=== PATIENT | male | born 1960 | race Caucasian/White ===

== ENCOUNTER 2021-09-24 20:28 | Emergency (ER) | payer OTHER ==
[~2021-09-24 20:28] MED LIST: ACCUPRIL 5MG TAB5 MG PO; AZITHROMYCIN250 MG PO; CEFDINIR300 MG PO; CLEOCIN300 MG PO; DUONEB 2.5-0.5M1 AMP INH; LIPITOR40 MG PO; MAG-OXIDE 400M400 MG PO; MAGNESIUM OXID400 MG PO; METOPROLOL SUCC25 MG PO; NEBULIZER UNIT NEB; POTASSIUM CHLO20 ME2 PO; PROTONIX 40MG T40 MG PO; VENTOLIN HFA IN18 GM INH
[2021-09-24 21:58] LABS: BASOPHIL 0.1 % (0-2); EOSINOPHIL 0.2 % (0-5); HCT 30.2 % (42.0-52.0); MCH 28.8 pg (25.0-31.0); MCHC 33.1 g/dL (32.0-36.0); MONOCYTE 5.5 % (0-12); MPV 10.3 fL (6.0-9.5); NRBC 0; PLT 267 K/uL (150-400); RBC 3.47 M/uL (4.70-6.00); RDW 14.6 % (11.5-14.0); WBC 20.1 K/uL (4.0-10.5)
[2021-09-24 22:00] LABS: NEUTROPHIL 91.6 % (41-80)
[2021-09-24 22:18] LABS: ALBUMIN 2.1 g/dL (3.4-5.0); BILIRUBIN - TOTAL 0.2 mg/dL (0.2-1.0); BUN/CREAT RATIO (CALC) 18.1 RATIO; CREATININE 1.05 mg/dL (0.67-1.17); POTASSIUM 4.4 mmol/L (3.5-5.1); TOTAL PROTEIN 7.1 g/dL (6.4-8.2)
[2021-09-24 22:35] LABS: BILIRUBIN NEGATIVE (NEGATIVE); BLOOD 1+ Ery/uL (NEGATIVE); CLARITY CLEAR (CLEAR); COLOR YELLOW (YELLOW); GLUCOSE (U) 3+ mg/dL (NORMAL); LEUKOCYTES NEGATIVE Leu/uL (NEGATIVE); NITRITE NEGATIVE (NEGATIVE); PROTEIN 1+ mg/dL (NEGATIVE); SPECIFIC GRAVITY 1.015 (1.001-1.030); UROBILINOGEN 0.2 mg/dL (0.2-1.0); pH 6.5 (5.0-9.0)
[2021-09-24 22:41] LABS: BACTERIA TRACE; URINARY RBC RARE; URINARY WBC RARE
[2021-09-24 23:36] LABS: LACTIC ACID 1.6 mmol/L (0.4-1.9)
[2021-09-24 23:51] LABS: BUN/CREAT RATIO (CALC) 15.9 RATIO; CREATININE 1.07 mg/dL (0.67-1.17); POTASSIUM 4.7 mmol/L (3.5-5.1)
[2021-09-25 00:17] LABS: CORONAVIRUS 2019 SARS-COV-2 NEGATIVE (NEGATIVE); INFLUENZA A NAA NEGATIVE (NEGATIVE)
[2021-09-25] MEDS ORDERED: LEVAQUIN750 MG PO ×2 (00:51→01:05)
== END 2021-09-25 01:58 | disposition home or self-care (01) ==
LOC: FER 20:28
PROVIDERS: Emergency Medicine Emergency Medical Services; Physician Assistant Medical
DX: E11.65 Type 2 diabetes mellitus with hyperglycemia (principal); J18.9 Pneumonia, unspecified organism; E87.1 Hypo-osmolality and hyponatremia; I10 Essential (primary) hypertension; K21.9 Gastro-esophageal reflux disease without esophagitis; C34.90 Malignant neoplasm of unspecified part of unspecified bronchus or lung; E03.9 Hypothyroidism, unspecified; Z20.822 Contact with and (suspected) exposure to COVID-19; Z51.5 Encounter for palliative care; Z87.891 Personal history of nicotine dependence; Z79.4 Long term (current) use of insulin; Z79.84 Long term (current) use of oral hypoglycemic drugs; Z79.890 Hormone replacement therapy; Z79.899 Other long term (current) drug therapy; Z99.81 Dependence on supplemental oxygen
CPT/HCPCS: 36415; 71045; 80048; 80053; 81001; 83605; 84145; 85025; 87040; J0692; J7030; U0002

== ENCOUNTER 2021-10-10 13:50 | Inpatient (IN) | payer OTHER ==
[~2021-10-10] VITALS: Ht 172.7 cm; Wt 82.3 kg
[~2021-10-10 13:50] MED LIST changes: +LEVAQUIN750 MG PO
[2021-10-10 14:28] LABS: BASOPHIL 0.2 % (0-2); EOSINOPHIL 0.2 % (0-5); HCT 27.7 % (42.0-52.0); HGB 8.8 g/dl (13.2-18.0); LYMPHOCYTE 1.8 % (15-48); MCH 27.9 pg (25.0-31.0); MCHC 31.8 g/dL (32.0-36.0); MCV 87.9 fL (78.0-100.0); MONOCYTE 5.9 % (0-12); MPV 9.7 fL (6.0-9.5); PLT 302 K/uL (150-400); RBC 3.15 M/uL (4.70-6.00); RDW 14.7 % (11.5-14.0); WBC 18.7 K/uL (4.0-10.5)
[2021-10-10 14:53] LABS: INR 1.52 (0.9-1.2); PROTHROMBIN TIME 17.6 SECONDS (11.8-13.4); PTT 44.7 SECONDS (24.4-34.7)
[2021-10-10 14:54] LABS: D-DIMER 3.31 ug/mLFEU (0.00-0.41)
[2021-10-10 14:55] LABS: ALBUMIN 1.7 g/dL (3.4-5.0); BILIRUBIN - TOTAL 0.3 mg/dL (0.2-1.0); BUN/CREAT RATIO (CALC) 12.7 RATIO; CREATININE 1.18 mg/dL (0.67-1.17); GLOBULIN (CALCULATION) 5.5 g/dL; MAGNESIUM 1.2 mg/dL (1.8-2.4); POTASSIUM 4.6 mmol/L (3.5-5.1); TOTAL PROTEIN 7.2 g/dL (6.4-8.2)
[2021-10-10 15:01] LABS: LACTIC ACID 2.3 mmol/L (0.4-1.9)
[2021-10-10 15:32] LABS: BAND 2 % (0-10); LYMPHOCYTE(M) 3 % (15-48); MONOCYTE(M) 7 % (0-12); NEUTROPHILS(M) 88 % (41-80); TOTAL CELL COUNT 100
[2021-10-10 15:33] LABS: NRBC 0
[2021-10-10 15:34] LABS: PLATELET ESTIMATE NORMAL; PLATELET MORPHOLOGY NORMAL
[2021-10-10 15:45] LABS: CORONAVIRUS 2019 SARS-COV-2 NEGATIVE (NEGATIVE); INFLUENZA A NAA NEGATIVE (NEGATIVE)
[2021-10-10 16:47] LABS: BILIRUBIN NEGATIVE (NEGATIVE); BLOOD NEGATIVE Ery/uL (NEGATIVE); CLARITY CLEAR (CLEAR); COLOR YELLOW (YELLOW); GLUCOSE (U) 2+ mg/dL (NORMAL); LEUKOCYTES NEGATIVE Leu/uL (NEGATIVE); NITRITE NEGATIVE (NEGATIVE); PROTEIN TRACE (LOW) mg/dL (NEGATIVE); SPECIFIC GRAVITY 1.015 (1.001-1.030); UROBILINOGEN 0.2 mg/dL (0.2-1.0); pH 7.5 (5.0-9.0)
[2021-10-10 16:52] LABS: URINARY RBC RARE; URINARY WBC RARE
[2021-10-10] MEDS ORDERED: METFORMIN HCL500 MG PO (21:44)
[2021-10-10] MEDS ORDERED: ELIQUIS5 MG PO (21:44)
[2021-10-10] MEDS ORDERED: MAG-OXIDE 400M400 MG PO ×2 (21:45→21:46)
[2021-10-10] MEDS ORDERED: PREDNISONE 10MG10 MG PO (21:45)
[2021-10-10] MEDS ORDERED: LEVAQUIN500 MG PO (21:45)
[2021-10-10] MEDS ORDERED: PROTONIX40 MG PO (21:46)
[2021-10-10] MEDS ORDERED: LEXAPRO 10MG TA10 MG PO (21:47)
[2021-10-10] MEDS ORDERED: LIPITOR40 MG PO (21:47)
[2021-10-10] MEDS ORDERED: PERCOCET 7.5/321 TAB PO (21:48)
[2021-10-10] MEDS ORDERED: EUTHYROX25 MCG PO (21:48)
[2021-10-10] MEDS ORDERED: TOPROL XL 25MG25 MG PO (21:48)
[2021-10-10] MEDS ORDERED: TOUJEO MAX300 UNIT/1 SC (21:51)
[2021-10-10] MEDS ORDERED: HUMALOG100 UNIT/3 SC (21:54)
[2021-10-11 05:55] LABS: BASOPHIL 0.2 % (0-2); EOSINOPHIL 0.6 % (0-5); HCT 25.1 % (42.0-52.0); LYMPHOCYTE 2.5 % (15-48); MCHC 31.9 g/dL (32.0-36.0); MCV 87.8 fL (78.0-100.0); MONOCYTE 7.3 % (0-12); MPV 9.8 fL (6.0-9.5); NEUTROPHIL 88.2 % (41-80); NRBC 0; PLT 277 K/uL (150-400); RBC 2.86 M/uL (4.70-6.00); RDW 14.7 % (11.5-14.0); WBC 16.6 K/uL (4.0-10.5)
[2021-10-11 06:45] LABS: CREATININE 1.09 mg/dL (0.67-1.17); POTASSIUM 4.3 mmol/L (3.5-5.1)
[2021-10-11 06:48] LABS: IRON % SATURATION 21.2 %SAT (20-50)
[2021-10-11 07:27] LABS: ALBUMIN 1.4 g/dL (3.4-5.0); BILIRUBIN - DIRECT 0.1 mg/dL (0.00-0.20); BILIRUBIN - TOTAL 0.3 mg/dL (0.2-1.0); BUN/CREAT RATIO (CALC) 11.9 RATIO; GLOBULIN (CALCULATION) 4.8 g/dL; TOTAL PROTEIN 6.2 g/dL (6.4-8.2)
[2021-10-12 06:58] LABS: ALBUMIN 1.4 g/dL (3.4-5.0); BILIRUBIN - TOTAL 0.6 mg/dL (0.2-1.0); BUN/CREAT RATIO (CALC) 10.4 RATIO; CREATININE 1.06 mg/dL (0.67-1.17); GLOBULIN (CALCULATION) 4.8 g/dL; POTASSIUM 4.1 mmol/L (3.5-5.1); TOTAL PROTEIN 6.2 g/dL (6.4-8.2)
[2021-10-13 06:25] LABS: BASOPHIL 0.3 % (0-2); EOSINOPHIL 0.7 % (0-5); HCT 25.6 % (42.0-52.0); HGB 8.2 g/dl (13.2-18.0); LYMPHOCYTE 3.1 % (15-48); MCH 28.3 pg (25.0-31.0); MCV 88.3 fL (78.0-100.0); MONOCYTE 7.9 % (0-12); NEUTROPHIL 86.9 % (41-80); NRBC 0; PLT 294 K/uL (150-400); RDW 14.7 % (11.5-14.0); WBC 19.4 K/uL (4.0-10.5)
[2021-10-13 06:30] LABS: BUN/CREAT RATIO (CALC) 11.9 RATIO; CREATININE 1.01 mg/dL (0.67-1.17)
--- NOTE | 2021-10-13 14:27 | NUR ---
10/13 Mr. Sanderson has a dx of lung cancer and he will no longer receive treatment. He does not wish to have Hospice services. - Mirella, patient's daughter, is supportive and assist as needed. - Mr. Sanderson has a rollator, rw, 3in1, wc, s. Chair and 02 at 4L. He only uses the 02. The concentrator currently goes up to 5 L. The family requested a concentrator with greater capacity. [employer] reports to be unable to supply a concentrator that goes up to 10L until the requirements increase. Patient was informed to get an order from Dr. Mcduffie when appropriate. - Mr. aSnderson chose [facility] . A referral was made via [facility]. Please notify [facility] at [phone] if patient is discharged over the weekend.
[2021-10-14 05:58] LABS: ALBUMIN 1.3 g/dL (3.4-5.0); BILIRUBIN - TOTAL 0.4 mg/dL (0.2-1.0); BUN/CREAT RATIO (CALC) 13.5 RATIO; CREATININE 1.04 mg/dL (0.67-1.17); GLOBULIN (CALCULATION) 4.7 g/dL; POTASSIUM 4.1 mmol/L (3.5-5.1)
[2021-10-14] MEDS ORDERED: FOLIC ACID1 MG PO (08:34)
[2021-10-14] MEDS ORDERED: AMIODARONE HCL200 MG PO (09:53)
== END 2021-10-14 10:31 | disposition home or self-care (01) | DRG 871 ==
LOC: FER 13:50 → FTCU 17:26
PROVIDERS: Emergency Medicine; ADMIT Family Medicine
DX: A41.9 Sepsis, unspecified organism (principal); J18.9 Pneumonia, unspecified organism; E87.1 Hypo-osmolality and hyponatremia; C34.91 Malignant neoplasm of unspecified part of right bronchus or lung; C34.92 Malignant neoplasm of unspecified part of left bronchus or lung; I31.3 Pericardial effusion (noninflammatory); R65.20 Severe sepsis without septic shock; Z20.822 Contact with and (suspected) exposure to COVID-19; I48.0 Paroxysmal atrial fibrillation; J43.9 Emphysema, unspecified; E83.42 Hypomagnesemia; D63.0 Anemia in neoplastic disease; I27.20 Pulmonary hypertension, unspecified; E78.5 Hyperlipidemia, unspecified; M79.89 Other specified soft tissue disorders; I10 Essential (primary) hypertension; E11.65 Type 2 diabetes mellitus with hyperglycemia; R74.8 Abnormal levels of other serum enzymes; L98.9 Disorder of the skin and subcutaneous tissue, unspecified; K59.03 Drug induced constipation; Z99.81 Dependence on supplemental oxygen; Z79.01 Long term (current) use of anticoagulants; Z79.52 Long term (current) use of systemic steroids; Z79.4 Long term (current) use of insulin; Z79.899 Other long term (current) drug therapy
CPT/HCPCS: 36415; 71045; 80048; 80053; 80076; 80202; 81001; 82607; 82962; 83540; 83550; 83605; 83735; 83880; 84145; 84443; 84484; 85025; 85379; 85610; 85730; 87040; 87088; 93005; J0282; J0692; J1815; J2405; J3370; J3475; J7050; J7060; U0002

== ENCOUNTER 2021-11-10 17:36 | Emergency (ER) | payer OTHER ==
[~2021-11-10 17:36] MED LIST changes: +AMIODARONE HCL200 MG PO; +ELIQUIS5 MG PO; +EUTHYROX25 MCG PO; +FOLIC ACID1 MG PO; +HUMALOG100 UNIT/3 SC; +LEVAQUIN500 MG PO; +LEXAPRO 10MG TA10 MG PO; +METFORMIN HCL500 MG PO; +PERCOCET 7.5/321 TAB PO; +PREDNISONE 10MG10 MG PO; +PROTONIX40 MG PO; +TOPROL XL 25MG25 MG PO; +TOUJEO MAX300 UNIT/1 SC
[2021-11-10 18:13] LABS: BASOPHIL 0.1 % (0-2); EOSINOPHIL 0.2 % (0-5); LYMPHOCYTE 1.7 % (15-48); MCH 27.4 pg (25.0-31.0); MCV 85.6 fL (78.0-100.0); MONOCYTE 4.6 % (0-12); MPV 9.2 fL (6.0-9.5); NRBC 0; PLT 433 K/uL (150-400); RBC 2.92 M/uL (4.70-6.00); RDW 15.5 % (11.5-14.0); WBC 29.3 K/uL (4.0-10.5)
[2021-11-10 18:17] LABS: NEUTROPHIL 92.7 % (41-80)
[2021-11-10 18:25] LABS: PTT 34.3 SECONDS (24.4-34.7)
[2021-11-10 18:34] LABS: LACTIC ACID 0.6 mmol/L (0.4-1.9)
[2021-11-10 18:36] LABS: ALBUMIN 1.9 g/dL (3.4-5.0); BILIRUBIN - TOTAL 0.4 mg/dL (0.2-1.0); BUN/CREAT RATIO (CALC) 22.7 RATIO; CREATININE 0.97 mg/dL (0.67-1.17); GLOBULIN (CALCULATION) 5.5 g/dL; TOTAL PROTEIN 7.4 g/dL (6.4-8.2)
[2021-11-10 18:43] LABS: INR 1.1 (0.9-1.2); PROTHROMBIN TIME 13.6 SECONDS (11.8-13.4)
[2021-11-10] MEDS ORDERED: ONDANSETRON ODT4 MG PO (20:59)
[2021-11-10] MEDS ORDERED: PHENERGAN25 M1 PO (20:59)
[2021-11-10] MEDS ORDERED: PROMETHEGA12.5 MG/SU PR (20:59)
== END 2021-11-10 21:50 | disposition home or self-care (01) ==
LOC: FER 17:36
PROVIDERS: Emergency Medicine
DX: R11.2 Nausea with vomiting, unspecified (principal); R10.13 Epigastric pain; E11.9 Type 2 diabetes mellitus without complications
CPT/HCPCS: 36415; 71250; 80053; 83605; 83690; 84484; 85025; 85610; 85730; 93005; J2550; J7030